=== PATIENT | male | born 1950 | race American Indian/Alaskan Native ===

== ENCOUNTER 2017-04-29 09:18 | Day surgery (SDC) | payer MEDICARE ==
[2017-04-23 08:21] VITALS: BMI 25.4
[2017-04-29] MEDS ORDERED: Propofol 10 mg/ml Inj (20 ML) ONE (13:49)
[2017-04-29] MEDS ORDERED: Lactated Ringer's 1,000 ML IV SCH (14:00)
[2017-04-29 15:31] VITALS: BP 116/79; PULSE 65; RESP 16; TEMP 97.9; O2SAT 99
== END 2017-04-29 16:12 | disposition home or self-care (01) ==
LOC: ENDO 09:18
PROVIDERS: ATTEND Internal Medicine Gastroenterology
DX: D12.3 Benign neoplasm of transverse colon (principal); K63.5 Polyp of colon; K29.50 Unspecified chronic gastritis without bleeding; B96.81 Helicobacter pylori [H. pylori] as the cause of diseases classified elsewhere; K62.5 Hemorrhage of anus and rectum; K57.30 Diverticulosis of large intestine without perforation or abscess without bleeding; K64.8 Other hemorrhoids; D50.9 Iron deficiency anemia, unspecified
CPT/HCPCS: 43235; 45380; 45381; 45382; 45385; 88305; 88342; J2001; J2704; J3010; J7040; J7120